=== PATIENT | female | born 1955 | race Caucasian/White ===

== ENCOUNTER 2018-07-11 15:37 | Emergency (ER) | END 2018-07-11 17:28 | disposition home or self-care (01) ==

== ENCOUNTER 2018-11-08 23:46 | Inpatient (IN) | payer OTHER ==
[~2018-11-08] VITALS: Ht 152.4 cm; Wt 99.4 kg
[~2018-11-08 23:46] MED LIST: CYCL10TA7 PO; HYDR-3498 PO; IBUP-1542 PO; IBUP-1545 PO; IBUP800T48 PO; NAPR-985 PO
[2018-11-09] MEDS ORDERED: SOD CHLORIDE 0.9% 500 ML IV STA (03:49)
[2018-11-09] MEDS ORDERED: FAMOTIDINE 20 MG INJ IV STA (03:49)
[2018-11-09] MEDS ORDERED: ONDANSETRON 4 MG INJ IV STA (03:49)
[2018-11-09] MEDS ORDERED: AMLO5TAB4 PO (04:51)
[2018-11-09] MEDS ORDERED: HYDR12.53 PO (04:51)
[2018-11-09] MEDS ORDERED: SIMV20TA20 PO (04:51)
--- NOTE | 2018-11-09 05:23 | ERD ---
ER Documentation Chief Complaint Chief Complaint SYNCOPE, AP, VOMITING, RB, HEMATURIA X'S 2 DAYS HPI This is a 8-year-old female that she syncopized twice today and is also complaining of abdominal pain and vomiting and rectal bleeding. She said she is been on a "apple cider "diet for the past few weeks in an effort to lose weight, and over the past states she had blood in her stool. Today she passed out twice both when she was getting up from a seated position to standing. She denies any chest pain fevers or chills. She did complain of mild epigastric abdominal pain. Pain was mild to moderate intensity with no exacerbating alleviating factors. Denies any palpitations. She is also vomited 3-4 times over the past 2 days which was nonbilious and nonbloody. ROS All systems reviewed and are negative except as per history of present illness. Medications Home Meds Active Scripts Naproxen* (Naprosyn*) 500 Mg Tablet, 500 MG PO BID PRN for PAIN AND/OR INFLAMMATION, #30 TAB Prov:LULÚ THOMSON PA-C 08/28/15 Hydrocodone Bit-Acetaminophen* ([place]*) 5-325 Mg Tab, 1 TAB PO Q6 PRN for PAIN, #10 TAB Prov:EZ SCHROEDER [employer] 03/11/15 Reported Medications Simvastatin (Simvastatin) 20 Mg Tablet, 20 MG PO QHS for 90 Days, #90 TAKE 1 TABLET BY MOUTH EVERY DAY AT NIGHT 11/09/18 Hydrochlorothiazide (Hydrochlorothiazide) 12.5 Mg Capsule, 12.5 MG PO DAILY for 90 Days, #90 11/09/18 Amlodipine Besylate* (Norvasc*) 5 Mg Tablet, 5 MG PO DAILY, TAB 11/09/18 Discontinued Reported Medications Ibuprofen* (Ibuprofen*) 800 Mg Tab, 800 MG PO Q6H PRN for PAIN, TAB 03/11/15 Discontinued Scripts Cyclobenzaprine Hcl* (Cyclobenzaprine Hcl*) 10 Mg Tablet, 10 MG PO TID, #15 TAB Prov:RICKI GARNER PA-C 07/11/18 Naproxen* (Naprosyn*) 500 Mg Tablet, 500 MG PO BID PRN for PAIN AND/OR INFLAMMATION, #30 TAB Prov:RICKI GARNER PA-C 07/11/18 Ibuprofen* (Motrin*) 800 Mg Tab, 800 MG PO Q6, #30 TAB Prov:LULÚ THOMSON PA-C 08/28/15 Hydrocodone Bit-Acetaminophen* ([place]*) 5-325 Mg Tab, 1 TAB PO Q6 PRN for PAIN, #7 TAB Prov:LULÚ THOMSON PA-C 08/28/15 Ibuprofen* (Motrin*) 600 Mg Tab, 600 MG PO Q6H PRN for PAIN AND OR ELEVATED TEMP, #30 Prov:EZ SCHROEDER. [employer]ER 05/13/15 Ibuprofen* (Motrin*) 800 Mg Tab, 800 MG PO Q8 PRN for PAIN AND OR ELEVATED TEMP, #30 TAB Prov:EZ SCHROEDER [employer] 03/11/15 Allergies Allergies: Coded Allergies: ampicillin (Unverified Allergy, Unknown, rash, 11/09/18) PMhx/Soc History of Surgery: Yes (, R ANKLE) Anesthesia Reaction: No Hx Neurological Disorder: No Hx Respiratory Disorders: No Hx Cardiac Disorders: Yes (HTN) Hx Psychiatric Problems: No Hx Miscellaneous Medical Probl: Yes (HIGH CHOLESTEROL) Hx Alcohol Use: Yes Hx Substance Use: No Hx Tobacco Use: No Smoking Status: Never smoker Physical Exam Vitals Vital Signs Date Temp Pulse Resp B/P (MAP) Pulse Ox O2 O2 Flow FiO2 Time Delivery Rate 11/08/18 98.6 92 20 180/90 97 23:51 (120) Physical Exam Const: No acute distress Head: Atraumatic Eyes: Normal Conjunctiva ENT: Normal External Ears, Nose and Mouth. Neck: Full range of motion. No meningismus. Resp: Clear to auscultation bilaterally Cardio: Regular rate and rhythm, no murmurs Abd: Soft, non tender, non distended. Normal bowel sounds Skin: No petechiae or rashes Back: No midline or flank tenderness Ext: No cyanosis, or edema Neur: Awake and alert Psych: Normal Mood and Affect Result Diagram: 11/09/18 0359 11/09/18 0359 Results 24 hrs Laboratory Tests Test 11/09/18 03:59 11/09/18 04:07 White Blood Count 10.2 10^3/ul Red Blood Count 4.99 10^6/ul Hemoglobin 14.3 g/dl Hematocrit 42.9 % Mean Corpuscular Volume 86.0 fl Mean Corpuscular Hemoglobin 28.7 pg Mean Corpuscular Hemoglobin Concent 33.3 g/dl Red Cell Distribution Width 13.8 % Platelet Count 196 10^3/UL Mean Platelet Volume 10.9 fl Immature Granulocytes % 0.500 % Neutrophils % 73.1 % Lymphocytes % 17.6 % Monocytes % 8.0 % Eosinophils % 0.3 % Basophils % 0.5 % Nucleated Red Blood Cells % 0.0 /100WBC Immature Granulocytes # 0.050 10^3/ul Neutrophils # 7.5 10^3/ul Lymphocytes # 1.8 10^3/ul Monocytes # 0.8 10^3/ul Eosinophils # 0.0 10^3/ul Basophils # 0.1 10^3/ul Nucleated Red Blood Cells # 0.0 10^3/ul Urine Color SANAM Urine Clarity SLIGHTLY CLOUDY Urine pH 5.0 Urine Specific [place] 1.029 Urine Ketones 2+ mg/dL Urine Nitrite NEGATIVE mg/dL Urine Bilirubin NEGATIVE mg/dL Urine Urobilinogen 2+ mg/dL Urine Leukocyte Esterase NEGATIVE Chery/ul Urine Microscopic RBC 2 /HPF Urine Microscopic WBC 6 /HPF Urine Squamous Epithelial Cells FEW /HPF Urine Bacteria FEW /HPF Urine Mucus MANY /HPF Urine Hemoglobin NEGATIVE mg/dL Urine Glucose NEGATIVE mg/dL Urine Total Protein 1+ mg/dl Sodium Level 137 mmol/L Potassium Level 4.1 mmol/L Chloride Level 95 mmol/L Carbon Dioxide Level 28 mmol/L Anion Gap 14 Blood Urea Nitrogen 11 mg/dl Creatinine 0.44 mg/dl Est Glomerular Filtrat Rate mL/min > 60 mL/min Glucose Level 131 mg/dl Calcium Level 9.7 mg/dl Total Bilirubin 2.0 mg/dl Direct Bilirubin 0.00 mg/dl Indirect Bilirubin 2.0 mg/dl Aspartate Amino Transf (AST/SGOT) 43 IU/L Alanine Aminotransferase (ALT/SGPT) 43 IU/L Alkaline Phosphatase 184 IU/L Troponin I < 0.012 ng/ml Total Protein 8.1 g/dl Albumin 4.3 g/dl Globulin 3.80 g/dl Albumin/Globulin Ratio 1.13 Lipase 51 U/L POC Beta HCG, Qualitative NEGATIVE Current Medications Medications Dose Sig/Kalina Start Time Status Last (Trade) Ordered Route PRN Stop Time Admin Dose Reason Admin Sodium 500 ml @ Q1H STAT 11/09/18 DC 11/09/18 Chloride 500 mls/hr IV 03:49 04:16 11/09/18 04:48 Ondansetron 4 mg ONCE STAT 11/09/18 DC 11/09/18 HCl (Zofran IV 03:49 04:15 Inj) 11/09/18 03:51 Famotidine 20 mg ONCE STAT 11/09/18 DC 11/09/18 (Pepcid Iv) IV 03:49 04:15 11/09/18 03:51 Procedures/MDM Emergency department course: Patient seen about by triage nurse. Placed in bed from evaluation. Placed on continuous cardiac monitoring with continuous pulse oximetry. Given a fluid bolus. Had a stat cardiac workup. Also had CT scan of the abdomen and pelvis. Was given a dose of Rocephin for evidence of urinary tract infection. Diagnostic data: EKG: Rate/Rhythm: [Normal Sinus Rhythm] QRS, ST, T-waves: [No changes consistent w/ acute ischemia] Impression: [No evidence of ischemia or arrhythmia] Chest X-ray 1V Interpreted by me: Soft Tissue: No acute abnormalities Bones: No acute abnormalities Mediastinum/Cardiac Silhouette/Lungs: [No acute abnormalities] Medical decision making: This is a 62-year-old female with multiple medical problems. Patient has evidence of urinary tract infection, also 2 episodes of syncope. Syncope likely vasovagal, however given patient's advanced age and multiple episodes I feel she has been admitted for this alone. She also has evidence of rectal bleed likely secondary to peptic disease. Patient will be admitted to telemetric setting for continuous monitoring. Departure Diagnosis: Primary Impression: Syncope Syncope type: unspecified Qualified Codes: R55 - Syncope and collapse Additional Impressions: Rectal bleed Urinary tract infection Urinary tract infection type: site unspecified Hematuria presence: with hematuria Qualified Codes: N39.0 - Urinary tract infection, site not specified; R31.9 - Hematuria, unspecified Condition: Serious RICKI CLARKE Nov 09, 2018 05:23
[2018-11-09] MEDS ORDERED: SOD CHLORIDE 0.9% 1,000 ML IV SCH (11:06)
[2018-11-09] MEDS ORDERED: LORAZEPAM 2 MG INJ IV PRN (11:30)
[2018-11-09] MEDS ORDERED: morphine 2 MG INJ IV PRN (11:30)
[2018-11-09] MEDS ORDERED: MAGNESIUM HYDROXIDE 30ML CUP PO PRN (11:30)
[2018-11-09] MEDS ORDERED: NITROGLYCERIN (SL) 0.4 MG TAB SL PRN (11:30)
[2018-11-09] MEDS ORDERED: HYDROCODONE/APAP (5/325) TAB PO PRN (11:30)
[2018-11-09] MEDS ORDERED: DOCUSATE SODIUM 100 MG CAP PO PRN (11:30)
[2018-11-09] MEDS ORDERED: ALBUTEROL/IPRATROPIUM (NEB) 3 ML AMP HHN PRN (11:30)
[2018-11-09] MEDS ORDERED: hydrALAzine 20 MG INJ IV PRN (11:30)
[2018-11-09] MEDS ORDERED: NACL 0.9% 3 ML SYG IV SCH (11:30)
[2018-11-09] MEDS ORDERED: ACETAMINOPHEN 325 MG TAB PO PRN (11:30)
[2018-11-09] MEDS: FAMOTIDINE 20 MG INJ IV SCH (12:30)
--- NOTE | 2018-11-09 13:20 | RADRPT ---
Echocardiogram Report Patient Name: KATE WUPatient ID: [id number] : 1955 (62y 11m)Study Date: 11/09/2018 11:50:08 AM Gender: FAccession #: [id number] Tech: Emmie Aiken RDCS Location: [facility] Ref.Physician: VALENTINA NERI Height(Cm): BSA: Weight(Kg): Quality: AdequateAccount #: Procedures: Echocardiographic Report: Transthoracic echocardiogram with complete 2D, M-Mode, and doppler examination. Indications: Syncope. Measurements: 2D/M Mode Doppler Measurement Value Normal Range Measurement Value Normal Range LVIDd 2D 4.0 [ 3.8 - 5.2 ] cm VANCE Vmax 2.0 [ 2.0 - 4.0 ] cm2 LVIDs 2D 2.5 [ 2.2 - 3.5 ] cm VANCE VTI 2.3 [ 2.0 - 4.0 ] cm2 LVPWd 2D 1.0 [ 0.6 - 0.9 ] cm AV Mean Augusto 1.7 [ 70.0 - 90.0 ] cm/sec IVSd 2D 1.0 [ 0.6 - 0.9 ] cm AV Mean PG 13.0 [ 2.0 - 4.0 ] mmHg IVS/LVPW 2D 1.0 ratio AV Peak Augusto 2.3 [ 100.0 - 170.0 ] cm/sec AoR Diam 2D 2.7 [ 2.3 - 3.1 ] cm AV Peak PG 22.0 [ 2.0 - 9.0 ] mmHg LA/Ao 2D 1 ratio AV VTI 45.3 cm LA Dimen 2D 2.9 [ 2.7 - 3.8 ] cm LVOT Mean Augusto 0.9 [ 60.0 - 80.0 ] cm/sec LVOT Diam 2.0 [ 2.1 - 2.5 ] cm LVOT Mean PG 4.0 [ 1.0 - 3.0 ] mmHg LVOT Area 3.1 cm2 LVOT Peak Augusto 1.5 [ 70.0 - 110.0 ] cm/sec LVOT Peak PG 9.0 [ 2.0 - 6.0 ] mmHg LVOT VTI 33.3 [ 20.0 - 30.0 ] cm MV E Peak Augusto 0.8 [ 60.0 - 130.0 ] cm/sec MV A Peak Augusto 1.1 [ 100.0 - 120.0 ] cm/sec MV E/A 0.7 [ 0.8 - 1.5 ] ratio MV Decel Time 303 [ 104 - 258 ] msec Lat E` Augusto 0.1 [ 10.0 - 15.0 ] cm/sec MV E/A 0.7 [ 0.8 - 1.5 ] ratio TR Peak Augusto 2.4 [ 100.0 - 280.0 ] cm/sec TR Peak PG 23.0 mmHg RVSP 36.0 [ 10.0 - 36.0 ] mmHg RA Pressure 3.0 mmHg Findings: Left Ventricle: Normal left ventricular systolic function. Normal left ventricular cavity size. Normal left ventricular wall thickness. Ejection fraction is visually estimated at 65 %. Tissue Doppler/Mitral Doppler indices are consistent with impaired relaxation (Stage I diastolic dysfunction). Right Ventricle: Normal right ventricular size. Normal right ventricular systolic function. Left Atrium: The left atrium is normal in size. Right Atrium: The right atrium is normal in size. Mitral Valve: Normal appearance and function of the mitral valve with trace physiologic regurgitation. Mild mitral annular calcification. Aortic Valve: No significant aortic stenosis or insufficiency. Aortic valve Max velocity 2.33 m/sec. Max PG 22.00 mmHg. Mean PG 13.00 mmHg. Aortic valve area 2.30 cm2. Aortic sclerosis without significant stenosis. Tricuspid Valve: Normal appearance and function of the tricuspid valve with trace physiologic regurgitation. Normal right ventricular systolic pressure. Pulmonic Valve: Normal pulmonic valve appearance. Pericardium: Normal pericardium with no significant pericardial effusion. Aorta: Normal aortic root. IVC: Normal size and normal respiratory collapse consistent with normal right atrial pressure. Conclusions: Normal left ventricular systolic function. Normal left ventricular cavity size. Normal left ventricular wall thickness. Ejection fraction is visually estimated at 65 %. Tissue Doppler/Mitral Doppler indices are consistent with impaired relaxation (Stage I diastolic dysfunction). Electronically Signed By: Aidan Tolentino 2018-11-09 13:19:22 PDT
[2018-11-09 16:30] VITALS: Ht 152.4 cm; Wt 99.4 kg
[2018-11-09 16:40] VITALS: BP 143/97; PULSE 100; RESP 20
--- NOTE | 2018-11-09 17:32 | HP ---
DATE OF ADMISSION: 11/09/2018 CHIEF COMPLAINT: Nausea, vomiting, lower GI bleeding, syncope. HISTORY OF PRESENT ILLNESS: A 62-year-old female with past medical history of hypertension, high cho lesterol, who has been having a few different complaints that have been going on for the last 24 to 4 8 hours. She initially had abdominal pain along with nonbilious, nonbloody vomiting and some nausea symptoms. She has also had some constipation for the last 2 days. She feels like those symptoms mad e her dizzy over the last 24 hours and she had a near-syncopal event at home. She did not have any t ongue biting or loss of bowel or bladder function; however, this has not happened before. She has al so noticed some bright red blood per rectum although she says she has had this off and on in the past and believes she has had a history of hemorrhoids in the past. She states her last EGD and colonosc opy were 8 years ago. At that time, she was told she had some colon polyps. Denies any chest pain. No fevers or chills. No diarrhea. PAST MEDICAL HISTORY: As above. ALLERGIES: AMPICILLIN. HOME MEDICATIONS: 1. Norvasc 5 mg daily. 2. Simvastatin 20 mg at bedtime. 3. [place] q.6 hours p.r.n. 4. Naproxen 500 mg b.i.d. p.r.n. 5. Hydrochlorothiazide 12.5 mg daily. PAST SURGICAL HISTORY: She has had in the past and right ankle surgery in the past. FAMILY HISTORY: Mother has hypertension and small stroke history. Father about to go on dialysis. SOCIAL HISTORY: Occasional alcohol use. Denies any IV drug abuse or smoking history. PHYSICAL EXAMINATION: VITAL SIGNS: T-max 98.0, pulse 66 to 100, respirations 16 to 20, blood pressure is 132 to 154 systol ic over 52 to 55 diastolic, satting at 99% on room air. GENERAL: The patient is lying in bed, obese. Otherwise, alert, no acute distress. HEENT: Pupils equal, round, reactive to light. Extraocular muscles intact. NECK: Supple, no thyromegaly. LUNGS: Clear to auscultation bilaterally. CARDIOVASCULAR: S1, S2 heard. No rubs or gallops. ABDOMEN: Obese, soft, nontender, nondistended. Normal bowel sounds. No rebound or guarding. MUSCULOSKELETAL: No lower extremity edema bilaterally. NEUROLOGIC: No focal deficits. LABORATORIES: The comprehensive metabolic panel was normal except the total bilirubin is 2.0 but the direct is 0. Alkaline phosphatase is a little high at 184. Troponin is negative x1. Lipase is nor mal. Beta hCG test is normal. CBC is normal. The coags are normal. The UA shows negative nitrites , negative leukocyte esterase, few bacteria. CT abdomen and pelvis was performed which shows bilater al nonobstructing renal calcified calculi, larger on the left, without obstructive uropathy, mild div erticulosis of the descending and proximal sigmoid colon. No evidence of any diverticulitis. Chest x-ray does not show any acute process. ASSESSMENT AND PLAN: A 62-year-old female, again, with abdominal pain, nausea, vomiting and possible presyncopal event and rectal bleeding. 1. Abdominal pain, nausea, vomiting. Again, unclear where the symptoms could be occurring from. Th e patient does have a history of colon polyps diagnosed 8 years ago. She has also had some bloating symptoms. We will admit the patient, put on low-dose IV fluids. Get PT consult. Check TSH, A1c and lipid panel. We will get a GI consult as well. Give her pain control medications and, again, antie metics and IV fluids. 2. Presyncopal events. We will go ahead and order imaging studies including echocardiogram and manzano tid Doppler studies. Consider head CT as well. 3. Rectal bleeding. Hemoglobin is stable. We will hold all anticoagulants and get a GI consult. S he does have history of colon polyps and history of hemorrhoids as well. 4. History of hypertension. Blood pressure stable. Continue current medications. 5. High cholesterol. Follow up lipid panel. Continue statin. 6. Gastrointestinal prophylaxis. H2 karla. Dictated By: VALENTINA LIZAMA/CARLY Conf#: [id number] DID#: [id number] CC: RICKI GAMBOA MD;*EndCC*
[2018-11-09] MEDS: SOD CHLORIDE 0.45% 1,000 ML IV SCH (18:20)
[2018-11-09 20:00] VITALS: PULSE 74
[2018-11-09 20:02] VITALS: BP 134/62; PULSE 80; RESP 19
[2018-11-09] MEDS: ATORVASTATIN 20 MG TAB PO SCH (20:50)
[2018-11-10] VITALS (9 sets, daily range): BP systolic 110–161; BP diastolic 55–69; PULSE 56–85; RESP 18–19
[2018-11-10] MEDS: SOD CHLORIDE 0.45% 1,000 ML IV SCH ×2 (07:20→21:39)
[2018-11-10] MEDS: FAMOTIDINE 20 MG INJ IV SCH (09:10)
[2018-11-10] MEDS: ONDANSETRON 4 MG INJ IV PRN ×2 (09:10→21:41)
--- NOTE | 2018-11-10 12:12 | CONS ---
Assessment/Plan Assessment/Plan Hospital Course (Demo Recall) Summary Assessment and Plan: Assessment: Hematochezia Generalized abdominal pain Near syncope episode Hypertension History of elevated cholesterol Plan: Clear liquid diet Start GoLYTELY prep today NPO after 11/11/18 at 0800 Colonoscopy 11/11/18 Endoscopy - risks/benefits/alternatives/indications of procedure and sedation/anesthesia discussed with patient who states understanding and gives informed consent to proceed. Patient seen in collaboration with Dr. Lindsey CC: RAJIV LINDSEY ; Consultation Date/Type/Reason Admit Date/Time Nov 09, 2018 at 05:33 Date of Consultation: Nov 10, 2018 Type of Consult GI Reason for Consultation Hematochezia Date/Time of Note DATE: 11/10/18 TIME: 12:02 Hx of Present Illness This is a 62-year-old female with past medical history of obesity and hypertension who presented to the hospital after a near- syncopal episode 2/2 to severe generalized abdominal pain with associated n/v. Patient states pain began abruptly, noted to be generalized with radiation to the right upper flank area as well as the right lower flank area. She additionally noted bright red blood per rectum. Imaging completed here included a CT abdomen/pelvis without contrast showing bilateral nonobstructing renal calcified calculi larger on the left without obstructive uropathy, Mild diverticulosis without evidence of diverticulitis. CRX shows no acute process within the chest. GI has been consulted for further evaluation regarding rectal bleeding. Patient states her last EGD/colonoscopy was about 8 years ago noted to have polyps however she is not aware of how many polyps or what type of polyp was removed. She states she has had progressive left rectal bleeding for little over a year, described as 'large amount". She denies unintentional weight loss, diarrhea, melena. She does complain of constipation has a bowel movement every 3-4 days. Given clinical picture we will plan for colonoscopy tomorrow I reviewed risk/benefits of both procedure and sedation patient verbalized understanding is agreeable to proceed. Review of Systems: A 12 system, review was conducted and is negative except as noted in the HPI or here. Past Medical History Home Meds Active Scripts Naproxen* (Naprosyn*) 500 Mg Tablet, 500 MG PO BID PRN for PAIN AND/OR INFLAMMATION, #30 TAB Prov:LULÚ THOMSON PA-C 08/28/15 Hydrocodone Bit-Acetaminophen* ([place]*) 5-325 Mg Tab, 1 TAB PO Q6 PRN for PAIN, #10 TAB Prov:EZ SCHROEDER [employer]ESSMENT [employer]ATMENT TEACHER 03/11/15 Reported Medications Simvastatin (Simvastatin) 20 Mg Tablet, 20 MG PO QHS for 90 Days, #90 TAKE 1 TABLET BY MOUTH EVERY DAY AT NIGHT 11/09/18 Hydrochlorothiazide (Hydrochlorothiazide) 12.5 Mg Capsule, 12.5 MG PO DAILY for 90 Days, #90 11/09/18 Amlodipine Besylate* (Norvasc*) 5 Mg Tablet, 5 MG PO DAILY, TAB 11/09/18 Discontinued Reported Medications Ibuprofen* (Ibuprofen*) 800 Mg Tab, 800 MG PO Q6H PRN for PAIN, TAB 03/11/15 Discontinued Scripts Cyclobenzaprine Hcl* (Cyclobenzaprine Hcl*) 10 Mg Tablet, 10 MG PO TID, #15 TAB Prov:RICKI GARNER PA-C 07/11/18 Naproxen* (Naprosyn*) 500 Mg Tablet, 500 MG PO BID PRN for PAIN AND/OR INFLAMMATION, #30 TAB Prov:RICKI GARNER PA-C 07/11/18 Ibuprofen* (Motrin*) 800 Mg Tab, 800 MG PO Q6, #30 TAB Prov:LULÚ THOMSON PA-C 08/28/15 Hydrocodone Bit-Acetaminophen* ([place]*) 5-325 Mg Tab, 1 TAB PO Q6 PRN for PAIN, #7 TAB Prov:LULÚ THOMSON PA-C 08/28/15 Ibuprofen* (Motrin*) 600 Mg Tab, 600 MG PO Q6H PRN for PAIN AND OR ELEVATED TEMP, #30 Prov:EZ SCHROEDER NP 05/13/15 Ibuprofen* (Motrin*) 800 Mg Tab, 800 MG PO Q8 PRN for PAIN AND OR ELEVATED TEMP, #30 TAB Prov:EZ SCHROEDER [employer] ASSESSMENT AND [employer]REATMENT TEACHER 03/11/15 Medications Current Medications IV Flush (NS 3 ml) 3 ml PER PROTOCOL IV ; Start 11/09/18 at 11:30 Ondansetron HCl (Zofran Inj) 4 mg Q6H PRN IV NAUSEA/VOMITING Last administered on 11/10/18at 09:10; Admin Dose 4 MG; Start 11/09/18 at 11:30 Acetaminophen (Tylenol Tab) 650 mg Q6H PRN PO .PAIN 1-3 OR TEMP; Start 11/09/18 at 11:30 Acetaminophen/ Hydrocodone Bitart ([place] (5/325)) 1 tab Q6H PRN PO .MOD PAIN 4- 6; Start 11/09/18 at 11:30 Morphine Sulfate (morphine) 2 mg Q4H PRN IV .SEVERE PAIN 7-10; Start 11/09/18 at 11:30 Docusate Sodium (Colace) 100 mg Q12H PRN PO .CONSTIPATION; Start 11/09/18 at 11:30 Magnesium Hydroxide (Milk Of Mag) 30 ml DAILY PRN PO .CONSTIPATION; Start 11/09/18 at 11:30 Famotidine (Pepcid Iv) 20 mg DAILY IV Last administered on 11/10/18at 09:10; Adm in Dose 20 MG; Start 11/09/18 at 12:30 Lorazepam (Ativan) 0.5 mg Q6H PRN IV ANXIETY; Start 11/09/18 at 11:30 Albuterol/ Ipratropium (Duoneb) 3 ml Q4H RESP THERAPY PRN HHN SHORTNESS OF BREATH; Start 11/09/18 at 11:30 Hydralazine HCl (Apresoline) 10 mg Q6H PRN IV ELEVATED BLOOD PRESSURE; Start 11/09/18 at 11:30 Nitroglycerin (Nitroglycerin (Sl Tab) 0.4 Mg) 1 tab Q5M PRN SL ANGINA; Start 11/09/18 at 11:30 Atorvastatin Calcium (Lipitor) 20 mg DAILY@21 PO ; Start 11/09/18 at 21:00 Sodium Chloride 1,000 ml @ 75 mls/hr [id number] IV Last administered on 11/09/18at 18:20; Admin Dose 75 MLS/HR; Start 11/09/18 at 18:00 Allergies: Coded Allergies: ampicillin (Unverified Allergy, Unknown, rash, 11/09/18) Social History Smoking Status: Former smoker Exam/Review of Systems Exam Vitals Vital Signs Date Temp Pulse Resp B/P (MAP) Pulse Ox O2 O2 Flow FiO2 Time Delivery Rate 11/10/18 97.7 69 19 123/55 97 11:38 (77) 11/10/18 Room Air 00:00 Intake and Output 11/09/18 11/09/18 11/10/18 1515:00 23:00 07:00 IntakeIntake Total 100 ml BalanceBalance 100 ml Exam PHYSICAL EXAMINATION: GENERAL: Obese,alert & oriented x 3, in no acute distress SKIN: No lesions, no stigmata chronic liver disease, no evidence of bleeding diathesis HEAD: Normocephalic, atraumatic, no tenderness. EYES: Pupils equal reactive to light and accommodation, full extraocular movements, sclera clear, non-icteric, no discharge. EARS/NOSE AND THROAT: Ears normal, nose normal, oropharynx normal, oral membranes well hydrated without lesions. NECK: Supple. CHEST: Inspection within normal limits. CARDIOVASCULAR: Heart: Regular rate and rhythm RESPIRATORY: Lungs clear to auscultation GASTROINTESTINAL AND LIVER: Abdomen: Soft, non tenderness, non-distended, no hernias, no masses, no organomegaly, no ascites, no guarding, no rebound tenderness, normoactive bowel sounds. Rectal: Deferred. EXTREMITIES: No cyanosis, clubbing or edema. Results Result Diagram: 11/10/18 0520 11/10/18 0520 Results 24hrs Laboratory Tests Test 11/10/18 05:20 White Blood Count 7.0 # Red Blood Count 4.02 L Hemoglobin 11.6 L Hematocrit 35.4 L Mean Corpuscular Volume 88.1 Mean Corpuscular Hemoglobin 28.9 L Mean Corpuscular Hemoglobin Concent 32.8 Red Cell Distribution Width 14.4 Platelet Count 168 Mean Platelet Volume 11.0 H Immature Granulocytes % 0.400 Neutrophils % 50.5 Lymphocytes % 35.8 Monocytes % 10.6 Eosinophils % 2.1 Basophils % 0.6 Nucleated Red Blood Cells % 0.0 Immature Granulocytes # 0.030 Neutrophils # 3.5 Lymphocytes # 2.5 Monocytes # 0.7 Eosinophils # 0.2 Basophils # 0.0 Nucleated Red Blood Cells # 0.0 Sodium Level 138 Potassium Level 3.5 Chloride Level 101 Carbon Dioxide Level 30 Anion Gap 7 Blood Urea Nitrogen 8 Creatinine 0.47 Est Glomerular Filtrat Rate mL/min > 60 Glucose Level 98 Hemoglobin A1c 4.9 Calcium Level 8.6 Phosphorus Level 3.7 Magnesium Level 2.0 Triglycerides Level 114 Cholesterol Level 132 LDL Cholesterol, Calculated 83 HDL Cholesterol 26 L Cholesterol/HDL Ratio 5.0 Thyroid Stimulating Hormone (TSH) 6.130 H Medications Medication Current Medications IV Flush (NS 3 ml) 3 ml PER PROTOCOL IV ; Start 11/09/18 at 11:30 Ondansetron HCl (Zofran Inj) 4 mg Q6H PRN IV NAUSEA/VOMITING Last administered on 11/10/18at 09:10; Admin Dose 4 MG; Start 11/09/18 at 11:30 Acetaminophen (Tylenol Tab) 650 mg Q6H PRN PO .PAIN 1-3 OR TEMP; Start 11/09/18 at 11:30 Acetaminophen/ Hydrocodone Bitart ([place] (5/325)) 1 tab Q6H PRN PO .MOD PAIN 4- 6; Start 11/09/18 at 11:30 Morphine Sulfate (morphine) 2 mg Q4H PRN IV .SEVERE PAIN 7-10; Start 11/09/18 at 11:30 Docusate Sodium (Colace) 100 mg Q12H PRN PO .CONSTIPATION; Start 11/09/18 at 11:30 Magnesium Hydroxide (Milk Of Mag) 30 ml DAILY PRN PO .CONSTIPATION; Start 11/09/18 at 11:30 Famotidine (Pepcid Iv) 20 mg DAILY IV Last administered on 11/10/18at 09:10; Admin Dose 20 MG; Start 11/09/18 at 12:30 Lorazepam (Ativan) 0.5 mg Q6H PRN IV ANXIETY; Start 11/09/18 at 11:30 Albuterol/ Ipratropium (Duoneb) 3 ml Q4H RESP THERAPY PRN HHN SHORTNESS OF BREATH; Start 11/09/18 at 11:30 Hydralazine HCl (Apresoline) 10 mg Q6H PRN IV ELEVATED BLOOD PRESSURE; Start 11/09/18 at 11:30 Nitroglycerin (Nitroglycerin (Sl Tab) 0.4 Mg) 1 tab Q5M PRN SL ANGINA; Start 11/09/18 at 11:30 Atorvastatin Calcium (Lipitor) 20 mg DAILY@21 PO ; Start 11/09/18 at 21:00 Sodium Chloride 1,000 ml @ 75 mls/hr [id number] IV Last administered on 11/09/18at 18:20; Admin Dose 75 MLS/HR; Start 11/09/18 at 18:00 JOSEPH SMART 14, 2019 12:12
--- NOTE | 2018-11-10 13:19 | PN ---
Date/Time of Note Date/Time of Note DATE: 11/10/18 TIME: 13:16 Assessment/Plan VTE Prophylaxis Risk score (from Ns)>0 risk: 2 SCD applied (from Ns): Yes Pharmacological prophylaxis: NA/contraindicated Pharm contraindication: bleeding Lines/Catheters [facility]from [facility] Saline Lock Urinary Cath still in place: No Assessment/Plan Hospital Course S: Patient having less abdominal pain symptoms now. Seen by GI team yesterday. O: VS - see below PHYSICAL EXAMINATION: GENERAL: lying in bed, obese. Otherwise, alert, no acute distress. HEENT: Pupils equal, round, reactive to light. Extraocular muscles intact. NECK: Supple, no thyromegaly. LUNGS: Clear to auscultation bilaterally. CARDIOVASCULAR: S1, S2 heard. No rubs or gallops. ABDOMEN: Obese, soft, nontender, nondistended. Normal bowel sounds. No rebound or guarding. MUSCULOSKELETAL: No lower extremity edema bilaterally. NEUROLOGIC: No focal deficits. ASSESSMENT AND PLAN: 62-year-old female, again, with abdominal pain, nausea, vomiting and possible presyncopal event and rectal bleeding. 1. Abdominal pain, nausea, vomiting-resolving now. Again, unclear where the symptoms could be occurring from. The patient does have a history of colon polyps diagnosed 8 years ago. She has also had some bloating symptoms. -For now continue low-dose IV fluids., Follow-up recs from PT consult. Check TSH, A1c and lipid panel. -Follow-up recommendations from GI consult as well, continue pain control medications and, again, antiemetics and IV fluids. 2. Presyncopal event-occurred prior to admission. None noted since patient hospitalized here. Head CT negative for any acute findings. -Follow-up final results of echocardiogram and carotid Doppler studies. 3. Rectal bleeding. Hemoglobin is stable. She does have history of colon polyps and history of hemorrhoids as well. -Continue to hold all anticoagulants and follow recommendations from GI consult. 4. History of hypertension. Blood pressure stable. - Continue current medications. 5. High cholesterol. - Follow up lipid panel. - Continue statin. 6. Gastrointestinal prophylaxis. H2 karla. Result Diagram: 11/10/18 0520 11/10/18 0520 Results 24hrs Laboratory Tests Test 11/10/18 05:20 White Blood Count 7.0 # Red Blood Count 4.02 L Hemoglobin 11.6 L Hematocrit 35.4 L Mean Corpuscular Volume 88.1 Mean Corpuscular Hemoglobin 28.9 L Mean Corpuscular Hemoglobin Concent 32.8 Red Cell Distribution Width 14.4 Platelet Count 168 Mean Platelet Volume 11.0 H Immature Granulocytes % 0.400 Neutrophils % 50.5 Lymphocytes % 35.8 Monocytes % 10.6 Eosinophils % 2.1 Basophils % 0.6 Nucleated Red Blood Cells % 0.0 Immature Granulocytes # 0.030 Neutrophils # 3.5 Lymphocytes # 2.5 Monocytes # 0.7 Eosinophils # 0.2 Basophils # 0.0 Nucleated Red Blood Cells # 0.0 Sodium Level 138 Potassium Level 3.5 Chloride Level 101 Carbon Dioxide Level 30 Anion Gap 7 Blood Urea Nitrogen 8 Creatinine 0.47 Est Glomerular Filtrat Rate mL/min > 60 Glucose Level 98 Hemoglobin A1c 4.9 Calcium Level 8.6 Phosphorus Level 3.7 Magnesium Level 2.0 Triglycerides Level 114 Cholesterol Level 132 LDL Cholesterol, Calculated 83 HDL Cholesterol 26 L Cholesterol/HDL Ratio 5.0 Thyroid Stimulating Hormone (TSH) 6.130 H Exam/Review of Systems Exam Vitals Vital Signs Date Temp Pulse Resp B/P (MAP) Pulse Ox O2 O2 Flow FiO2 Time Delivery Rate 11/10/18 69 12:21 11/10/18 97.7 19 123/55 97 11:38 (77) 11/10/18 Room Air 00:00 Intake and Output 11/09/18 11/09/18 11/10/18 1515:00 23:00 07:00 IntakeIntake Total 100 ml BalanceBalance 100 ml Results Results 24hrs Laboratory Tests Test 11/10/18 05:20 White Blood Count 7.0 # Red Blood Count 4.02 L Hemoglobin 11.6 L Hematocrit 35.4 L Mean Corpuscular Volume 88.1 Mean Corpuscular Hemoglobin 28.9 L Mean Corpuscular Hemoglobin Concent 32.8 Red Cell Distribution Width 14.4 Platelet Count 168 Mean Platelet Volume 11.0 H Immature Granulocytes % 0.400 Neutrophils % 50.5 Lymphocytes % 35.8 Monocytes % 10.6 Eosinophils % 2.1 Basophils % 0.6 Nucleated Red Blood Cells % 0.0 Immature Granulocytes # 0.030 Neutrophils # 3.5 Lymphocytes # 2.5 Monocytes # 0.7 Eosinophils # 0.2 Basophils # 0.0 Nucleated Red Blood Cells # 0.0 Sodium Level 138 Potassium Level 3.5 Chloride Level 101 Carbon Dioxide Level 30 Anion Gap 7 Blood Urea Nitrogen 8 Creatinine 0.47 Est Glomerular Filtrat Rate mL/min > 60 Glucose Level 98 Hemoglobin A1c 4.9 Calcium Level 8.6 Phosphorus Level 3.7 Magnesium Level 2.0 Triglycerides Level 114 Cholesterol Level 132 LDL Cholesterol, Calculated 83 HDL Cholesterol 26 L Cholesterol/HDL Ratio 5.0 Thyroid Stimulating Hormone (TSH) 6.130 H Medications Medication Current Medications IV Flush (NS 3 ml) 3 ml PER PROTOCOL IV ; Start 11/09/18 at 11:30 Ondansetron HCl (Zofran Inj) 4 mg Q6H PRN IV NAUSEA/VOMITING Last administered on 11/10/18at 09:10; Admin Dose 4 MG; Start 11/09/18 at 11:30 Acetaminophen (Tylenol Tab) 650 mg Q6H PRN PO .PAIN 1-3 OR TEMP; Start 11/09/18 at 11:30 Acetaminophen/ Hydrocodone Bitart ([place] (5/325)) 1 tab Q6H PRN PO .MOD PAIN 4- 6; Start 11/09/18 at 11:30 Morphine Sulfate (morphine) 2 mg Q4H PRN IV .SEVERE PAIN 7-10; Start 11/09/18 at 11:30 Docusate Sodium (Colace) 100 mg Q12H PRN PO .CONSTIPATION; Start 11/09/18 at 11 :30 Magnesium Hydroxide (Milk Of Mag) 30 ml DAILY PRN PO .CONSTIPATION; Start 11/09/18 at 11:30 Famotidine (Pepcid Iv) 20 mg DAILY IV Last administered on 11/10/18at 09:10; Admin Dose 20 MG; Start 11/09/18 at 12:30 Lorazepam (Ativan) 0.5 mg Q6H PRN IV ANXIETY; Start 11/09/18 at 11:30 Albuterol/ Ipratropium (Duoneb) 3 ml Q4H RESP THERAPY PRN HHN SHORTNESS OF BREATH; Start 11/09/18 at 11:30 Hydralazine HCl (Apresoline) 10 mg Q6H PRN IV ELEVATED BLOOD PRESSURE; Start 11/09/18 at 11:30 Nitroglycerin (Nitroglycerin (Sl Tab) 0.4 Mg) 1 tab Q5M PRN SL ANGINA; Start 11/09/18 at 11:30 Atorvastatin Calcium (Lipitor) 20 mg DAILY@21 PO ; Start 11/09/18 at 21:00 Sodium Chloride 1,000 ml @ 75 mls/hr [id number] IV Last administered on 11/09/18at 18:20; Admin Dose 75 MLS/HR; Start 11/09/18 at 18:00 Bisacodyl (Dulcolax) 10 mg ONCE ONCE PO ; Start 11/10/18 at 16:00; Stop 11/10/18 at 16:01 Polyethylene Glycol/ Electrolytes (Golytely) 2,000 ml ONCE ONCE PO ; Start 11/10/18 at 17:00; Stop 11/10/18 at 17:01 Polyethylene Glycol/ Electrolytes (Golytely) 2,000 ml 2nd Dose (GI Prep) ONCE PO ; Start 11/11/18 at 06:00; Stop 11/11/18 at 06:01 Bisacodyl (Dulcolax) 10 mg 2nd Dose (GI Prep) ONCE PO ; Start 11/11/18 at 05:00; Stop 11/11/18 at 05:01 VALENTINA NERI Nov 10, 2018 13:19
[2018-11-10] MEDS ORDERED: BISACODYL (EC) 5 MG TAB PO ONE (16:00)
[2018-11-10] MEDS ORDERED: PEG/ELECTROLYTES 4L BTL PO ONE (17:00)
[2018-11-10] MEDS: ATORVASTATIN 20 MG TAB PO SCH (20:25)
[2018-11-11] VITALS (15 sets, daily range): BP systolic 116–166; BP diastolic 57–72; PULSE 68–95; RESP 18–20
[2018-11-11] MEDS ORDERED: BISACODYL (EC) 5 MG TAB PO ONE (05:00)
[2018-11-11] MEDS ORDERED: PEG/ELECTROLYTES 4L BTL PO ONE (06:00)
[2018-11-11] MEDS: SOD CHLORIDE 0.45% 1,000 ML IV SCH ×2 (09:09→20:43)
--- NOTE | 2018-11-11 11:06 | PN ---
Date/Time of Note Date/Time of Note DATE: 11/11/18 TIME: 11:04 Assessment/Plan VTE Prophylaxis Risk score (from Ns)>0 risk: 2 [place] [facility] [place] Pharmacological prophylaxis: NA/contraindicated Pharm contraindication: bleeding Lines/Catheters IV Catheter Type (from [facility]): Saline Lock Urinary Cath still in place: No Assessment/Plan Hospital Course S: Patient had x-ray shoulder performed yesterday. Results reviewed. No acute events overnight. Awaiting colonoscopy later today. O: VS - see below PHYSICAL EXAMINATION: GENERAL: lying in bed, obese. Otherwise, alert, no acute distress. HEENT: Pupils equal, round, reactive to light. Extraocular muscles intact. NECK: Supple, no thyromegaly. LUNGS: Clear to auscultation bilaterally. CARDIOVASCULAR: S1, S2 heard. No rubs or gallops. ABDOMEN: Obese, soft, nontender, nondistended. Normal bowel sounds. No rebound or guarding. MUSCULOSKELETAL: No lower extremity edema bilaterally. NEUROLOGIC: No focal deficits. 2D echo: Conclusions: Normal left ventricular systolic function. Normal left ventricular cavity size. Normal left ventricular wall thickness. Ejection fraction is visually estimated at 65 %. Tissue Doppler/Mitral Doppler indices are consistent with impaired relaxation (Stage I diastolic dysfunction). ASSESSMENT AND PLAN: 62-year-old female, again, with abdominal pain, nausea, vomiting and possible presyncopal event and rectal bleeding. 1. Abdominal pain, nausea, vomiting-resolving now. Again, unclear where the symptoms could be occurring from. The patient does have a history of colon polyps diagnosed 8 years ago. She has also had some bloating symptoms. -For now continue low-dose IV fluids., Follow-up recs from PT consult. -Planning for colonoscopy today, follow-up post procedure recommendations from GI consult as well, continue pain control medications and, again, antiemetics and IV fluids. 2. Presyncopal event-occurred prior to admission. None noted since patient hospitalized here. Head CT negative for any acute findings, as well as 2D echo carotid Doppler studies. -Monitor for now 3. Rectal bleeding. Hemoglobin is stable. She does have history of colon polyps and history of hemorrhoids as well. -Continue to hold all anticoagulants and follow recommendations from GI consult-again for colonoscopy later today. 4. History of hypertension. Blood pressure stable. - Continue current medications. 5. High cholesterol. - Continue statin. 6. Gastrointestinal prophylaxis. H2 karla. Result Diagram: 11/11/1821 11/11/1821 Results 24hrs Laboratory Tests Test 11/11/18 05:21 White Blood Count 6.3 Red Blood Count 3.79 L Hemoglobin 11.0 L Hematocrit 33.8 L Mean Corpuscular Volume 89.2 Mean Corpuscular Hemoglobin 29.0 Mean Corpuscular Hemoglobin Concent 32.5 Red Cell Distribution Width 14.2 Platelet Count 180 Mean Platelet Volume 10.6 H Immature Granulocytes % 0.300 Neutrophils % 49.1 Lymphocytes % 34.7 Monocytes % 12.2 H Eosinophils % 3.2 Basophils % 0.5 Nucleated Red Blood Cells % 0.0 Immature Granulocytes # 0.020 Neutrophils # 3.1 Lymphocytes # 2.2 Monocytes # 0.8 Eosinophils # 0.2 Basophils # 0.0 Nucleated Red Blood Cells # 0.0 Sodium Level 137 Potassium Level 3.4 L Chloride Level 101 Carbon Dioxide Level 28 Anion Gap 8 Blood Urea Nitrogen 4 L Creatinine 0.45 Est Glomerular Filtrat Rate mL/min > 60 Glucose Level 153 Calcium Level 8.3 L Exam/Review of Systems Exam Vitals Vital Signs Date Temp Pulse Resp B/P (MAP) Pulse Ox O2 O2 Flow FiO2 Time Delivery Rate 11/11/18 97.4 74 18 133/60 100 09:39 (84) 11/11/18 Room Air 08:02 Intake and Output 11/10/18 11/10/18 11/11/18 1515:00 23:00 07:00 IntakeIntake Total 400 ml 3400 ml BalanceBalance 400 ml 3400 ml Results Results 24hrs Laboratory Tests Test 11/11/18 05:21 White Blood Count 6.3 Red Blood Count 3.79 L Hemoglobin 11.0 L Hematocrit 33.8 L Mean Corpuscular Volume 89.2 Mean Corpuscular Hemoglobin 29.0 Mean Corpuscular Hemoglobin Concent 32.5 Red Cell Distribution Width 14.2 Platelet Count 180 Mean Platelet Volume 10.6 H Immature Granulocytes % 0.300 Neutrophils % 49.1 Lymphocytes % 34.7 Monocytes % 12.2 H Eosinophils % 3.2 Basophils % 0.5 Nucleated Red Blood Cells % 0.0 Immature Granulocytes # 0.020 Neutrophils # 3.1 Lymphocytes # 2.2 Monocytes # 0.8 Eosinophils # 0.2 Basophils # 0.0 Nucleated Red Blood Cells # 0.0 Sodium Level 137 Potassium Level 3.4 L Chloride Level 101 Carbon Dioxide Level 28 Anion Gap 8 Blood Urea Nitrogen 4 L Creatinine 0.45 Est Glomerular Filtrat Rate mL/min > 60 Glucose Level 153 Calcium Level 8.3 L Medications Medication Current Medications IV Flush (NS 3 ml) 3 ml PER PROTOCOL IV ; Start 11/09/18 at 11:30 Ondansetron HCl (Zofran Inj) 4 mg Q6H PRN IV NAUSEA/VOMITING Last administered on 11/10/18at 21:41; Admin Dose 4 MG; Start 11/09/18 at 11:30 Acetaminophen (Tylenol Tab) 650 mg Q6H PRN PO .PAIN 1-3 OR TEMP; Start 11/09/18 at 11:30 Acetaminophen/ Hydrocodone Bitart ([place] (5/325)) 1 tab Q6H PRN PO .MOD PAIN 4- 6; Start 11/09/18 at 11:30 Morphine Sulfate (morphine) 2 mg Q4H PRN IV .SEVERE PAIN 7-10; Start 11/09/18 at 11:30 Docusate Sodium (Colace) 100 mg Q12H PRN PO .CONSTIPATION; Start 11/09/18 at 11:30 Magnesium Hydroxide (Milk Of Mag) 30 ml DAILY PRN PO .CONSTIPATION; Start 11/09/18 at 11:30 Famotidine (Pepcid Iv) 20 mg DAILY IV Last administered on 11/10/18at 09:10; Admin Dose 20 MG; Start 11/09/18 at 12:30 Lorazepam (Ativan) 0.5 mg Q6H PRN IV ANXIETY; Start 11/09/18 at 11:30 Albuterol/ Ipratropium (Duoneb) 3 ml Q4H RESP THERAPY PRN HHN SHORTNESS OF BREATH; Start 11/09/18 at 11:30 Hydralazine HCl (Apresoline) 10 mg Q6H PRN IV ELEVATED BLOOD PRESSURE; Start 11/09/18 at 11:30 Nitroglycerin (Nitroglycerin (Sl Tab) 0.4 Mg) 1 tab Q5M PRN SL ANGINA; Start 11/09/18 at 11:30 Atorvastatin Calcium (Lipitor) 20 mg DAILY@21 PO ; Start 11/09/18 at 21:00 Sodium Chloride 1,000 ml @ 75 mls/hr [id number] IV Last administered on 11/10/18at 21:39; Admin Dose 75 MLS/HR; Start 11/09/18 at 18:00 Potassium Chloride 100 ml @ 50 mls/hr ONCE ONCE IVPB ; Start 11/11/18 at 12:30; Stop 11/11/18 at 14:29 VALENTINA NERI Nov 11, 2018 11:06
[2018-11-11] MEDS: FAMOTIDINE 20 MG INJ IV SCH (11:31)
[2018-11-11] MEDS: POTASSIUM CHLORIDE 100 ML IVPB ONE ×2 (12:30→13:29)
--- NOTE | 2018-11-11 14:40 | PREAC ---
Date/Time of Note Date/Time of Note DATE: 11/11/18 TIME: 14:39 Anesthesia Eval and Record Evaluation Time Pre-Procedure Interview DATE: 11/11/18 TIME: 14:39 Age 62 Sex female NPO: 8 hrs Preoperative diagnosis GI bleed Planned procedure EGD, Colonoscopy Past Medical History Past Medical History: Includes Cardio: HTN Endo: Diabetes GI: Obesity Heme: Anemia Surgery & Anesthesia Issues No known issue Meds Anticoagulation: No Beta Anita within 24 hr: No Reason Beta Anita not given: Pt. not on B-Anita Active Scripts Naproxen* (Naprosyn*) 500 Mg Tablet, 500 MG PO BID PRN for PAIN AND/OR INFLAMMATION, #30 TAB Prov:LULÚ THOMSON PA-C 08/28/15 Hydrocodone Bit-Acetaminophen* (Timbo*) 5-325 Mg Tab, 1 TAB PO Q6 PRN for PAIN, #10 TAB Prov:EZ SCHROEDER CARGO BROKER 03/11/15 Reported Medications Simvastatin (Simvastatin) 20 Mg Tablet, 20 MG PO QHS for 90 Days, #90 TAKE 1 TABLET BY MOUTH EVERY DAY AT NIGHT 11/09/18 Hydrochlorothiazide (Hydrochlorothiazide) 12.5 Mg Capsule, 12.5 MG PO DAILY for 90 Days, #90 11/09/18 Amlodipine Besylate* (Norvasc*) 5 Mg Tablet, 5 MG PO DAILY, TAB 11/09/18 Discontinued Reported Medications Ibuprofen* (Ibuprofen*) 800 Mg Tab, 800 MG PO Q6H PRN for PAIN, TAB 03/11/15 Discontinued Scripts Cyclobenzaprine Hcl* (Cyclobenzaprine Hcl*) 10 Mg Tablet, 10 MG PO TID, #15 TAB Prov:RICKI GARNER PA-C 07/11/18 Naproxen* (Naprosyn*) 500 Mg Tablet, 500 MG PO BID PRN for PAIN AND/OR INFLAMMATION, #30 TAB Prov:RICKI GARNER PA-C 07/11/18 Ibuprofen* (Motrin*) 800 Mg Tab, 800 MG PO Q6, #30 TAB Prov:LULÚ THOMSON PA-C 08/28/15 Hydrocodone Bit-Acetaminophen* ([place]*) 5-325 Mg Tab, 1 TAB PO Q6 PRN for PAIN, #7 TAB Prov:LULÚ THOMSONC 08/28/15 Ibuprofen* (Motrin*) 600 Mg Tab, 600 MG PO Q6H PRN for PAIN AND OR ELEVATED TEMP, #30 Prov:EZ SCHROEDER. CARGO BROKER 05/13/15 Ibuprofen* (Motrin*) 800 Mg Tab, 800 MG PO Q8 PRN for PAIN AND OR ELEVATED TEMP, #30 TAB Prov:EZ SCHROEDER. CARGO BROKER 03/11/15 Current Medications IV Flush (NS 3 ml) 3 ml PER PROTOCOL IV ; Start 11/09/18 at 11:30 Ondansetron HCl (Zofran Inj) 4 mg Q6H PRN IV NAUSEA/VOMITING Last administered on 11/10/18at 21:41; Admin Dose 4 MG; Start 11/09/18 at 11:30 Acetaminophen (Tylenol Tab) 650 mg Q6H PRN PO .PAIN 1-3 OR TEMP; Start 11/09/18 at 11:30 Acetaminophen/ Hydrocodone Bitart ([place] (5/325)) 1 tab Q6H PRN PO .MOD PAIN 4- 6; Start 11/09/18 at 11:30 Morphine Sulfate (morphine) 2 mg Q4H PRN IV .SEVERE PAIN 7-10; Start 11/09/18 at 11:30 Docusate Sodium (Colace) 100 mg Q12H PRN PO .CONSTIPATION; Start 11/09/18 at 11:30 Magnesium Hydroxide (Milk Of Mag) 30 ml DAILY PRN PO .CONSTIPATION; Start 11/09/18 at 11:30 Famotidine (Pepcid Iv) 20 mg DAILY IV Last administered on 11/11/18at 11:31; Admin Dose 20 MG; Start 11/09/18 at 12:30 Lorazepam (Ativan) 0.5 mg Q6H PRN IV ANXIETY; Start 11/09/18 at 11:30 Albuterol/ Ipratropium (Duoneb) 3 ml Q4H RESP THERAPY PRN HHN SHORTNESS OF BREATH; Start 11/09/18 at 11:30 Hydralazine HCl (Apresoline) 10 mg Q6H PRN IV ELEVATED BLOOD PRESSURE; Start 11/09/18 at 11:30 Nitroglycerin (Nitroglycerin (Sl Tab) 0.4 Mg) 1 tab Q5M PRN SL ANGINA; Start 11/09/18 at 11:30 Atorvastatin Calcium (Lipitor) 20 mg DAILY@21 PO ; Start 11/09/18 at 21:00 Sodium Chloride 1,000 ml @ 75 mls/hr [id number] IV Last administered on 11/10/18at 21:39; Admin Dose 75 MLS/HR; Start 11/09/18 at 18:00 Meds reviewed: Yes Allergies Coded Allergies: ampicillin (Unverified Allergy, Unknown, rash, 11/09/18) Allergies Reviewed: Yes Labs/Studies Labs Reviewed: Reviewed by anesthesiologist Result Diagram: 11/11/1852011/11/18520 Laboratory Tests 11/11/18 05:21 test: N/A Studies: ECG (n/a), CXR (n/a) Pre-procedure Exam Last vitals Vital Signs Date Temp Pulse Resp B/P (MAP) Pulse Ox O2 O2 Flow FiO2 Time Delivery Rate 11/11/18 Room Air 12:56 11/11/18 70 12:08 11/11/18 97.7 18 128/60 97 11:35 (82) Airway: Adequate mouth opening, Adequate thyromental dist Mallampati: Mallampati II Teeth: Normal Lung: Normal Heart: Normal ASA Physical Status ASA physical status: 3 Emergency: None Planned Anesthetic General/MAC: MAC Planned Pain Management Parenteral pain med Pre-operative Attestations Prior to commencing anesthesia and surgery, the patient was re-evaluated, there was verification of: *The patient's identity *The results of appropriate recent lab work and preoperative vital signs *The above evaluation not changing prior to induction *Anesthetic plan, risk benefits, alternative and complications discussed with patient/family; questions answered; patient/family understands, accepts and wishes to proceed. TARAH ZACARIAS MD Nov 11, 2018 14:40
--- NOTE | 2018-11-11 15:04 | PAC ---
Date/Time of Note Date/Time of Note DATE: 11/11/18 TIME: 15:04 Post-Anesthesia Notes Post-Anesthesia Note Last documented vital signs Vital Signs Date Temp Pulse Resp B/P (MAP) Pulse Ox O2 O2 Flow FiO2 Time Delivery Rate 11/11/18 Room Air 12:56 11/11/18 70 12:08 11/11/18 97.7 73 18 128/60 97 15:16 (82) Activity: WNL Respiratory function: WNL Cardiovascular function: WNL Mental status: Baseline Pain reasonably controlled: Yes Hydration appropriate: Yes Nausea/Vomiting absent: Yes TARAH ZACARIAS MD Nov 11, 2018 15:04
[2018-11-11] MEDS ORDERED: PROPOFOL 60 ML ONE (15:05)
[2018-11-11] MEDS ORDERED: METOCLOPRAMIDE 10 MG INJ IV PRN (15:30)
[2018-11-11] MEDS: ATORVASTATIN 20 MG TAB PO SCH (20:46)
[2018-11-12] VITALS (7 sets, daily range): BP systolic 109–127; BP diastolic 56–60; PULSE 64–89; RESP 19–20
[2018-11-12] MEDS ORDERED: PANTOPRAZOLE (EC) 40 MG TAB PO SCH (06:00)
--- NOTE | 2018-11-12 11:12 | PN ---
Date/Time of Note Date/Time of Note DATE: 11/12/18 TIME: 11:09 Assessment/Plan VTE Prophylaxis Risk score (from [facility] [place]0 risk: 2 SCD applied (from Ns): Yes Pharmacological prophylaxis: NA/contraindicated Pharm contraindication: bleeding Lines/Catheters [facility] Saline Lock Urinary Cath still in place: No Assessment/Plan Hospital Course Assessment: Hematochezia Colonoscopy 11/11/2018 internal hemorrhoids, diverticulosis Generalized abdominal pain/persistent nausea EGD 11/11/2018 distal esophagitis, gastritis. Rule out H. pylori infection. Biopsies pending Near syncope episode Hypertension History of elevated cholesterol Plan: Continue present regimen. Add MiraLAX to avoid constipation If bleeding is significant and persistent patient will require surgical evaluation for possible hemorrhoidal banding/injection or surgery Result Diagram: 11/12/18 0532 11/12/18 0532 Results 24hrs Laboratory Tests Test 11/12/18 05:32 11/12/18 11:01 White Blood Count 4.1 #L Red Blood Count 3.82 L Hemoglobin 11.2 L Hematocrit 34.9 L Mean Corpuscular Volume 91.4 Mean Corpuscular Hemoglobin 29.3 Mean Corpuscular Hemoglobin Concent 32.1 Red Cell Distribution Width 14.6 H Platelet Count 204 Mean Platelet Volume 10.7 H Immature Granulocytes % 0.200 Neutrophils % 39.9 Lymphocytes % 41.5 Monocytes % 13.8 H Eosinophils % 3.6 Basophils % 1.0 Nucleated Red Blood Cells % 0.0 Immature Granulocytes # 0.010 Neutrophils # 1.7 Lymphocytes # 1.7 Monocytes # 0.6 Eosinophils # 0.2 Basophils # 0.0 Nucleated Red Blood Cells # 0.0 Sodium Level 141 Potassium Level 4.3 Chloride Level 107 Carbon Dioxide Level 27 Anion Gap 7 Blood Urea Nitrogen 6 L Creatinine 0.45 Est Glomerular Filtrat Rate mL/min > 60 Glucose Level 108 # Calcium Level 8.3 L Bedside Glucose 105 Exam/Review of Systems Exam Vitals Vital Signs Date Temp Pulse Resp B/P (MAP) Pulse Ox O2 O2 Flow FiO2 Time Delivery Rate 11/12/18 73 08:00 11/12/18 98.2 20 109/56 96 07:36 (73) 11/12/18 Room Air 03:49 11/11/18 15 14:59 Intake and Output 11/11/18 11/11/18 11/12/18 1515:00 23:00 07:00 IntakeIntake Total 3850 ml 600 ml BalanceBalance 3850 ml 600 ml Results Results 24hrs Laboratory Tests Test 11/12/18 05:32 11/12/18 11:01 White Blood Count 4.1 #L Red Blood Count 3.82 L Hemoglobin 11.2 L Hematocrit 34.9 L Mean Corpuscular Volume 91.4 Mean Corpuscular Hemoglobin 29.3 Mean Corpuscular Hemoglobin Concent 32.1 Red Cell Distribution Width 14.6 H Platelet Count 204 Mean Platelet Volume 10.7 H Immature Granulocytes % 0.200 Neutrophils % 39.9 Lymphocytes % 41.5 Monocytes % 13.8 H Eosinophils % 3.6 Basophils % 1.0 Nucleated Red Blood Cells % 0.0 Immature Granulocytes # 0.010 Neutrophils # 1.7 Lymphocytes # 1.7 Monocytes # 0.6 Eosinophils # 0.2 Basophils # 0.0 Nucleated Red Blood Cells # 0.0 Sodium Level 141 Potassium Level 4.3 Chloride Level 107 Carbon Dioxide Level 27 Anion Gap 7 Blood Urea Nitrogen 6 L Creatinine 0.45 Est Glomerular Filtrat Rate mL/min > 60 Glucose Level 108 # Calcium Level 8.3 L Bedside Glucose 105 Medications Medication Current Medications IV Flush (NS 3 ml) 3 ml PER PROTOCOL IV ; Start 11/09/18 at 11:30 Ondansetron HCl (Zofran Inj) 4 mg Q6H PRN IV NAUSEA/VOMITING Last administered on 11/10/18at 21:41; Admin Dose 4 MG; Start 11/09/18 at 11:30 Acetaminophen (Tylenol Tab) 650 mg Q6H PRN PO .PAIN 1-3 OR TEMP Last ad ministered on 11/12/18at 03:02; Admin Dose 650 MG; Start 11/09/18 at 11:30 Acetaminophen/ Hydrocodone Bitart ([place] (5/325)) 1 tab Q6H PRN PO .MOD PAIN 4- 6; Start 11/09/18 at 11:30 Morphine Sulfate (morphine) 2 mg Q4H PRN IV .SEVERE PAIN 7-10; Start 11/09/18 at 11:30 Docusate Sodium (Colace) 100 mg Q12H PRN PO .CONSTIPATION; Start 11/09/18 at 11:30 Magnesium Hydroxide (Milk Of Mag) 30 ml DAILY PRN PO .CONSTIPATION; Start 11/09/18 at 11:30 Lorazepam (Ativan) 0.5 mg Q6H PRN IV ANXIETY; Start 11/09/18 at 11:30 Albuterol/ Ipratropium (Duoneb) 3 ml Q4H RESP THERAPY PRN HHN SHORTNESS OF BREATH; Start 11/09/18 at 11:30 Hydralazine HCl (Apresoline) 10 mg Q6H PRN IV ELEVATED BLOOD PRESSURE; Start 11/09/18 at 11:30 Nitroglycerin (Nitroglycerin (Sl Tab) 0.4 Mg) 1 tab Q5M PRN SL ANGINA; Start 11/09/18 at 11:30 Atorvastatin Calcium (Lipitor) 20 mg DAILY@21 PO ; Start 11/09/18 at 21:00 Sodium Chloride 1,000 ml @ 75 mls/hr [id number] IV Last administered on 11/11/18at 20:43; Admin Dose 75 MLS/HR; Start 11/09/18 at 18:00 Pantoprazole (Protonix Tab) 40 mg DAILY@06 PO Last administered on 11/12/18at 05:26; Admin Dose 40 MG; Start 11/12/18 at 06:00 Metoclopramide HCl (Reglan) 10 mg Q6H PRN IV nausea; Start 11/11/18 at 15:30 BRANDY YEPEZ MD Nov 12, 2018 11:12
[2018-11-12] MEDS ORDERED: GABAPENTIN 100 MG CAP PO SCH ×2 (12:00)
[2018-11-12] MEDS ORDERED: POLYETHYLENE GLYCOL 17 GM PACKET PO SCH (12:00)
[2018-11-12] MEDS ORDERED: GABA100C14 PO (12:08)
[2018-11-12] MEDS ORDERED: POLY17PO6 PO (12:08)
--- NOTE | 2018-11-12 12:08 | PDOCDIS ---
Discharge Instructions CONDITION [id number] Patient Condition: [id number] Stable ACTIVITY: [id number] Activity Restrictions: [id number] Slowly Increase Activity Rest between Activity Avoid heavy lifting FOLLOW UP/APPOINTMENTS Follow-up Plan Please take your medications as prescribed, see your doctor in the clinic in the next 1 week. VALENTINA NERI Nov 12, 2018 12:07
--- NOTE | 2018-11-12 12:16 | DS ---
Date/Time of Note Date/Time of Note DATE: 11/12/18 TIME: 12:12 Discharge Summary Admission/Discharge Info Admit Date/Time Nov 09, 2018 at 05:33 Discharge Date/Time Discharge Diagnosis 1. Abdominal pain, nausea, vomiting-resolving now -status post EGD and colon oscopy. 2. Presyncopal event-occurred prior to admission. None noted since patient hospitalized here. Head CT negative for any acute findings, as well as 2D echo carotid Doppler studies. 3. Rectal bleeding-resolved, hemoglobin is stable -found with internal hemorrhoids and diverticulosis on colonoscopy 4. History of hypertension 5. High cholesterol. Patient Condition: Stable Procedures A. Hematochezia Colonoscopy 11/11/2018 internal hemorrhoids, diverticulosis B. Generalized abdominal pain/persistent nausea EGD 11/11/2018 distal esophagitis, gastritis. Rule out H. pylori infection. Biopsies pending C. 2D echo: Conclusions: Normal left ventricular systolic function. Normal left ventricular cavity size. Normal left ventricular wall thickness. Ejection fraction is visually estimated at 65 %. Tissue Doppler/Mitral Doppler indices are consistent with impaired relaxation (Stage I diastolic dysfunction). D. Left shoulder x-ray: IMPRESSION: 1. No acute fracture. 2. Mild acromioclavicular and glenohumeral degenerative change. Subacromial spur. Greater tuberosity hypertrophy. 3. MRI may be obtained if clinically indicated. Hx of Present Illness 62-year-old female with past medical history of hypertension, high cholesterol, who has been having a few different complaints that have been going on for the last 24 to 48 hours. She initially had abdominal pain along with nonbilious, nonbloody vomiting and some nausea symptoms. She has also had some constipation for the last 2 days. She feels like those symptoms made her dizzy over the last 24 hours and she had a near-syncopal event at home. She did not have any tongue biting or loss of bowel or bladder function; however, this has not happened before. She has also noticed some bright red blood per rectum although she says she has had this off and on in the past and believes she has had a history of hemorrhoids in the past. She states her last EGD and colonoscopy were 8 years ago. At that time, she was told she had some colon polyps. Denies any chest pain. No fevers or chills. No diarrhea. Hospital Course Patient was admitted. She underwent syncopal workup. Head CT, echocardiogram, carotid Doppler studies were negative. Patient had no further lower GI bleeding episodes. She was however seen by GI team and underwent EGD and colonoscopy. EGD did not show any acute changes, colonoscopy did confirm internal hemorrhoids and diverticulosis. Patient also complained of left shoulder pain, she was started on gabapentin to help control the symptoms as there was some tingling s ymptoms involved. Left shoulder x-ray was performed, no acute fractures but there were some joint arthritic findings. Over the course of her hospital stay again she was able to ambulate, tolerated p.o. diet. Bleeding symptoms resolved,syncopal events while here in the hospital. Patient started on MiraLAX as well. She will will be discharged home today and in improved condition. See below for full list of discharge medications. Home Meds Active Scripts Polyethylene Glycol* (Miralax*) 17 Gm Powd.pack, 17 GM PO DAILY, #1 BOTTLE 3 Refills Prov:VALENTINA NERI S. 11/12/18 Gabapentin* (Gabapentin*) 100 Mg Capsule, 200 MG PO BID, #60 CAP Prov:VALENTINA NERI S. 11/12/18 Hydrocodone Bit-Acetaminophen* ([place]*) 5-325 Mg Tab, 1 TAB PO Q6 PRN for PAIN, #10 TAB Prov:EZ SCHROEDER OPERATIONS SUPPORT REPRESENTATIVE 03/11/15 Reported Medications Simvastatin (Simvastatin) 20 Mg Tablet, 20 MG PO QHS for 90 Days, #90 TAKE 1 TABLET BY MOUTH EVERY DAY AT NIGHT 11/09/18 Hydrochlorothiazide (Hydrochlorothiazide) 12.5 Mg Capsule, 12.5 MG PO DAILY for 90 Days, #90 11/09/18 Amlodipine Besylate* (Norvasc*) 5 Mg Tablet, 5 MG PO DAILY, TAB 11/09/18 Discontinued Reported Medications Ibuprofen* (Ibuprofen*) 800 Mg Tab, 800 MG PO Q6H PRN for PAIN, TAB 03/11/15 Discontinued Scripts Naproxen* (Naprosyn*) 500 Mg Tablet, 500 MG PO BID PRN for PAIN AND/OR INFLAMMATION, #30 TAB Prov:LULÚ THOMSON PA-C 08/28/15 Cyclobenzaprine Hcl* (Cyclobenzaprine Hcl*) 10 Mg Tablet, 10 MG PO TID, #15 TAB Prov:RICKI GARNER PA-C 07/11/18 Naproxen* (Naprosyn*) 500 Mg Tablet, 500 MG PO BID PRN for PAIN AND/OR INF LAMMATION, #30 TAB Prov:RICKI GARNER PA-C 07/11/18 Ibuprofen* (Motrin*) 800 Mg Tab, 800 MG PO Q6, #30 TAB Prov:LULÚ THOMSON PA-C 08/28/15 Hydrocodone Bit-Acetaminophen* ([place]*) 5-325 Mg Tab, 1 TAB PO Q6 PRN for PAIN, #7 TAB Prov:LULÚ THOMSON PA-C 08/28/15 Ibuprofen* (Motrin*) 600 Mg Tab, 600 MG PO Q6H PRN for PAIN AND OR ELEVATED TEMP, #30 Prov:EZ SCHROEDER OPERATIONS SUPPORT REPRESENTATIVE 05/13/15 Ibuprofen* (Motrin*) 800 Mg Tab, 800 MG PO Q8 PRN for PAIN AND OR ELEVATED TEMP, #30 TAB Prov:EZ SCHROEDER OPERATIONS SUPPORT REPRESENTATIVE 03/11/15 Follow-up Plan Please take your medications as prescribed, see your doctor in the clinic in the next 1 week. Primary Care Provider [facility]. Time spent on discharge: > 30 minutes Pending Labs Laboratory Tests Test 11/12/18 05:32 11/12/18 11:01 White Blood Count 4.1 10^3/ul (4.8-10.8) Red Blood Count 3.82 10^6/ul (4.20-5.40) Hemoglobin 11.2 g/dl (12.0-16.0) Hematocrit 34.9 % (37.0-47.0) Mean Corpuscular Volume 91.4 fl (82.0-101.0) Mean Corpuscular Hemoglobin 29.3 pg (29.0-33.0) Mean Corpuscular 32.1 g/dl (32.0-37.0) Hemoglobin Concent Red Cell Distribution Width 14.6 % (11.5-14.5) Platelet Count 204 10^3/UL (140-415) Mean Platelet Volume 10.7 fl (7.4-10.4) Immature Granulocytes % 0.200 % (0.001-0.429) Neutrophils % 39.9 % (39.0-77.0) Lymphocytes % 41.5 % (15.0-51.0) Monocytes % 13.8 % (0.0-11.0) Eosinophils % 3.6 % (0.0-7.0) Basophils % 1.0 % (0.0-2.0) Nucleated Red Blood Cells % 0.0 /100WBC (0.0-0.0) Immature Granulocytes # 0.010 10^3/ul (0.0-0.031) Neutrophils # 1.7 10^3/ul (1.6-7.5) Lymphocytes # 1.7 10^3/ul (0.8-2.9) Monocytes # 0.6 10^3/ul (0.3-0.9) Eosinophils # 0.2 10^3/ul (0.0-0.5) Basophils # 0.0 10^3/ul (0.0-0.1) Nucleated Red Blood Cells # 0.0 10^3/ul (0.0-0.0) Sodium Level 141 mmol/L (135-144) Potassium Level 4.3 mmol/L (3.5-5.1) Chloride Level 107 mmol/L (97-110) Carbon Dioxide Level 27 mmol/L (21-31) Anion Gap 7 (5-13) Blood Urea Nitrogen 6 mg/dl (7-20) Creatinine 0.45 mg/dl (0.44-1.00) Est Glomerular Filtrat > 60 mL/min (>60) Rate mL/min Glucose Level 108 mg/dl (70-220) Calcium Level 8.3 mg/dl (8.4-10.2) Bedside Glucose 105 mg/dL (70-220) VALENTINA NERI Nov 12, 2018 12:16
== END 2018-11-12 16:00 | disposition home or self-care (01) | DRG 378 ==
LOC: E/R 23:46 → 6WM 11-09 05:33
PROVIDERS: ADMIT Internal Medicine; ATTEND Hospitalist
PROC: 0DB68ZX Excision of Stomach, Via Natural or Artificial Opening Endoscopic, Diagnostic (ICD-10-PCS; principal; 2018-11-11 17:30)
PROC: 0DBN8ZZ Excision of Sigmoid Colon, Via Natural or Artificial Opening Endoscopic (ICD-10-PCS; 2018-11-11 17:30)
DX: K29.01 Acute gastritis with bleeding (principal); Z68.41 Body mass index [BMI] 40.0-44.9, adult; D12.5 Benign neoplasm of sigmoid colon; E66.9 Obesity, unspecified; E78.00 Pure hypercholesterolemia, unspecified; I10 Essential (primary) hypertension; K20.9 Esophagitis, unspecified; K92.1 Melena; K64.8 Other hemorrhoids; K64.4 Residual hemorrhoidal skin tags; K59.00 Constipation, unspecified; M25.512 Pain in left shoulder; R11.2 Nausea with vomiting, unspecified; R55 Syncope and collapse; R10.9 Unspecified abdominal pain; Z71.3 Dietary counseling and surveillance; Z87.891 Personal history of nicotine dependence
CPT/HCPCS: 36415; 70450; 71045; 73030; 74176; 80048; 80053; 80061; 81001; 81025; 82962; 83036; 83690; 83735; 84100; 84439; 84443; 84484; 85025; 85610; 85730; 87086; 88305; 88312; 92610; 93005; 93306; 93880; 96361; 96374; 96375; 97161; 97166; J2405; J3480; J7030; J7040

== ENCOUNTER 2018-11-29 15:37 | Emergency (ER) | payer OTHER ==
[~2018-11-29] VITALS: Ht 152.4 cm; Wt 100.0 kg
[~2018-11-29 15:37] MED LIST changes: +AMLO5TAB4 PO; -CYCL10TA7 PO; +GABA100C14 PO; +HYDR12.53 PO; -IBUP-1542 PO; -IBUP-1545 PO; -IBUP800T48 PO; -NAPR-985 PO; +POLY17PO6 PO; +SIMV20TA20 PO
[2018-11-29 15:38] VITALS: BP 169/77; PULSE 86; RESP 17; Ht 152.4 cm; Wt 100.0 kg
[2018-11-29] MEDS ORDERED: KETOROLAC 15 MG INJ IV STA (16:55)
[2018-11-29] MEDS ORDERED: ACET-141 PO (18:03)
[2018-11-29] MEDS ORDERED: IBUP800T48 PO (18:03)
--- NOTE | 2018-11-29 18:07 | ERD ---
ER Documentation Chief Complaint Chief Complaint RT ANKLE PAIN AND SWELLING, BELIEVES "SCREW MAY HAVE COME LOOSE" ROS All systems reviewed and are negative except as per history of present illness. Medications Home Meds Active Scripts Acetaminophen* (Acetaminophen*) 500 MG Extra Strength Tablet, 500 MG PO Q4H PRN for PAIN AND OR ELEVATED TEMP, #30 TAB Prov:JANET SHOOK DO 11/29/18 Ibuprofen* (Motrin*) 800 Mg Tab, 800 MG PO Q6H PRN for PAIN AND OR ELEVATED TEMP, #30 TAB Prov:JANET SHOOK DO 11/29/18 Polyethylene Glycol* (Miralax*) 17 Gm Powd.pack, 17 GM PO DAILY, #1 BOTTLE 3 Refills Prov:GENA LACEYP S. 11/12/18 Gabapentin* (Gabapentin*) 100 Mg Capsule, 200 MG PO BID, #60 CAP Prov:HALLEVALENTINA S. 11/12/18 Hydrocodone Bit-Acetaminophen* ([place]*) 5-325 Mg Tab, 1 TAB PO Q6 PRN for PAIN, #10 TAB Prov:EZ SCHROEDER BEAN ROASTER 03/11/15 Reported Medications Simvastatin (Simvastatin) 20 Mg Tablet, 20 MG PO QHS for 90 Days, #90 TAKE 1 TABLET BY MOUTH EVERY DAY AT NIGHT 11/09/18 Hydrochlorothiazide (Hydrochlorothiazide) 12.5 Mg Capsule, 12.5 MG PO DAILY for 90 Days, #90 11/09/18 Amlodipine Besylate* (Norvasc*) 5 Mg Tablet, 5 MG PO DAILY, TAB 11/09/18 Allergies Allergies: Coded Allergies: ampicillin (Unverified Allergy, Unknown, rash, 11/09/18) PMhx/Soc History of Surgery: Yes (right ankle, csection) Anesthesia Reaction: No (unknown) Hx Neurological Disorder: No Hx Respiratory Disorders: No Hx Cardiac Disorders: No Hx Psychiatric Problems: No Hx Miscellaneous Medical Probl: Yes Hx Alcohol Use: No Hx Substance Use: No Hx Tobacco Use: No Smoking Status: Never smoker Physical Exam Vitals Vital Signs Date Temp Pulse Resp B/P (MAP) Pulse Ox O2 O2 Flow FiO2 Time Delivery Rate 11/29/18 98.8 86 17 169/77 99 15:38 (107) Physical Exam Const: No acute distress Head: Atraumatic Eyes: Normal Conjunctiva ENT: Normal External Ears, Nose and Mouth. Neck: Full range of motion. No meningismus. Resp: Clear to auscultation bilaterally Cardio: Regular rate and rhythm, no murmurs Abd: Soft, non tender, non distended. Normal bowel sounds Skin: No petechiae or rashes Back: No midline or flank tenderness Ext: No cyanosis, or edema Neur: Awake and alert Psych: Normal Mood and Affect Results 24 hrs Current Medications Medications Dose Sig/Kalina Start Time Status Last (Trade) Ordered Route PRN Stop Time Admin Dose Reason Admin Ketorolac 15 mg ONCE STAT 11/29/18 DC 11/29/18 Tromethamine IV 16:55 11/29/18 17:03 (Toradol) 16:57 Departure Diagnosis: Primary Impression: Ankle injury Encounter type: initial encounter Laterality: right Qualified Codes: S99.911A - Unspecified injury of right ankle, initial encounter Condition: Fair Patient Instructions: Treating Ankle Sprains, Fracture, Ankle (General) Referrals: [facility] (PCP) Additional Instructions: Call your primary care doctor TOMORROW for an appointment during the next 1-2 days.See the doctor sooner or return here if your condition worsens before your appointment time. Elevate right leg for swelling ice for swelling and pain pain medication as needed nonweight bearing for now return in ED in 5 days for repeat right ankle x-ray if pain does not improve JANET SHOOK DO Nov 29, 2018 18:07
== END 2018-11-29 18:28 | disposition home or self-care (01) ==
LOC: FTE 15:37
DX: S99.911A Unspecified injury of right ankle, initial encounter (principal); X58.XXXA Exposure to other specified factors, initial encounter; Y92.9 Unspecified place or not applicable
CPT/HCPCS: 73610; J1885; 96374

== ENCOUNTER 2018-12-14 15:31 | Emergency (ER) | payer OTHER ==
[~2018-12-14] VITALS: Ht 152.4 cm; Wt 98.2 kg
[~2018-12-14 15:31] MED LIST changes: +ACET-141 PO; +IBUP800T48 PO
[2018-12-14 15:35] VITALS: Ht 152.4 cm; Wt 98.2 kg
--- NOTE | 2018-12-14 17:28 | ERD ---
ER Documentation Chief Complaint Chief Complaint LEFT ANKLE PAIN/SWELLING/PURPLE-- LEFT LEG PAIN HPI 63-year-old female presents with complaint of left ankle pain and swelling. Patient states that the pain swelling has been there for about a month. Denies any history of trauma but thinks she might have stepped on it the wrong way. Patient was here in November 29 with same complaint, x-rays were performed and results were within normal limits. Patient says that her doctor was concerned for possible clots were advised her to come to the ER for an ultrasound. Patient states that she has a family history of gout and has gotten occasional pain over the left big toe. Denies any treatments. Pain is made worse with palpation and movement. Patient is ambulatory. Denies any numbness, tingling, fevers, chills, pallor, or cyanosis. ROS All systems reviewed and are negative except as per history of present illness. Medications Home Meds Active Scripts Ibuprofen* (Motrin*) 600 Mg Tab, 600 MG PO Q6 for pain, #30 TAB Prov:RICKI MASSEY 12/14/18 Acetaminophen* (Acetaminophen*) 500 MG Extra Strength Tablet, 500 MG PO Q4H PRN for PAIN AND OR ELEVATED TEMP, #30 TAB Prov:JANET SHOOK DO 11/29/18 Ibuprofen* (Motrin*) 800 Mg Tab, 800 MG PO Q6H PRN for PAIN AND OR ELEVATED TEMP, #30 TAB Prov:JANET SHOOK DO 11/29/18 Polyethylene Glycol* (Miralax*) 17 Gm Powd.pack, 17 GM PO DAILY, #1 BOTTLE 3 Refills Prov:VALENTINA NERI S. 11/12/18 Gabapentin* (Gabapentin*) 100 Mg Capsule, 200 MG PO BID, #60 CAP Prov:VALENTINA NERI S. 11/12/18 Hydrocodone Bit-Acetaminophen* ([place]*) 5-325 Mg Tab, 1 TAB PO Q6 PRN for PAIN, #10 TAB Prov:EZ SCHROEDER VEGETABLE SPECKER 03/11/15 Reported Medications Simvastatin (Simvastatin) 20 Mg Tablet, 20 MG PO QHS for 90 Days, #90 TAKE 1 TABLET BY MOUTH EVERY DAY AT NIGHT 11/09/18 Hydrochlorothiazide (Hydrochlorothiazide) 12.5 Mg Capsule, 12.5 MG PO DAILY for 90 Days, #90 11/09/18 Amlodipine Besylate* (Norvasc*) 5 Mg Tablet, 5 MG PO DAILY, TAB 11/09/18 Allergies Allergies: Coded Allergies: ampicillin (Unverified Allergy, Unknown, rash, 11/09/18) PMhx/Soc History of Surgery: Yes (right ankle, csection) Anesthesia Reaction: No (unknown) Hx Neurological Disorder: No Hx Respiratory Disorders: No Hx Cardiac Disorders: No Hx Psychiatric Problems: No Hx Miscellaneous Medical Probl: Yes (HTN) Hx Alcohol Use: No Hx Substance Use: No Hx Tobacco Use: No Smoking Status: Never smoker FmHx Family History: No diabetes, No coronary disease, No other Physical Exam Vitals Vital Signs Date Temp Pulse Resp B/P (MAP) Pulse Ox O2 O2 Flow FiO2 Time Delivery Rate 12/14/18 98.0 78 16 162/76 98 Room Air 19:32 (104) 12/14/18 98.3 82 19 177/72 98 15:35 (107) Physical Exam Const: No acute distress Head: Atraumatic Eyes: Normal Conjunctiva ENT: Normal External Ears, Nose and Mouth. Neck: Full range of motion. No meningismus. Resp: Clear to auscultation bilaterally Cardio: Regular rate and rhythm, no murmurs Abd: Soft, non tender, non distended. Normal bowel sounds Skin: No petechiae or rashes Back: No midline or flank tenderness Lower left extremity: Left ankle is edematous and tender to palpation. There is no, erythema, ecchymosis, or gibran deformity noted. Overlying skin is intact. Compartments are soft and warm. There is no pallor or cyanosis. Range of motion, distal pulses, and distal sensation is intact. There is normal cap refill. Neur: Awake and alert Psych: Normal Mood and Affect * Results 24 hrs Laboratory Tests Test 12/14/18 17:15 Erythrocyte Sedimentation Rate 105 mm/Hr Uric Acid 7.5 mg/dl C-Reactive Protein 5.0 mg/dl Procedures/MDM Ultrasounds were performed results within normal limits. In addition uric acid was within normal limits as well so I have low suspicion for gout attack. Advised patient to use rest ice compression elevation to resolve the edema. Also advised patient to follow-up with orthopedist if pain swelling does not resolve. Patient given Patel wrap in the ER. I have low suspicion for neurovascular compromise, compartment syndrome, fracture, osteomyelitis, septic joint, or other emergent condition. Patient discharged with strict ER precautions. Patient advised to follow up with PMD. All questions answered at discharge. Splint Assessment: Neurovascularly intact post splint placement with good fit. Patient's extremity symptoms have stabilized while they have been evaluated in the department and are appropriate for outpatient follow up. No evidence of compartment syndrome, neurologic injury, vascular injury, open joint, open fracture, tendon laceration, or foreign body. Departure Diagnosis: Primary Impression: Ankle pain Chronicity: chronic Laterality: left Qualified Codes: M25.572 - Pain in left ankle and joints of left foot; G89.29 - Other chronic pain Condition: Stable RICKI MASSEY Dec 14, 2018 17:28
[2018-12-14] MEDS ORDERED: IBUP-1542 PO (19:19)
[2018-12-14 19:32] VITALS: BP 162/76; PULSE 78; RESP 16
== END 2018-12-14 19:32 | disposition home or self-care (01) ==
LOC: FTE 15:31
DX: M25.572 Pain in left ankle and joints of left foot (principal); I10 Essential (primary) hypertension
CPT/HCPCS: 84560; 85651; 86140; 93971; Z7502